=== PATIENT | male | born 1990 | race Two or more races ===

== ENCOUNTER 2017-10-02 11:33 | Emergency (ER) | payer OTHER ==
[2017-10-02 11:47] VITALS: BP 128/88
--- NOTE | 2017-10-02 12:30 | EDPHY ---
H & P Time Seen by Provider: 10/02/17 12:04 HPI/ROS: This patient complains of a head injury sustained at work at 9:30 a.m. 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 Patient reports that he was dazed for a few minutes and had diplopia for 2-3 minutes from the episode. Then he developed a right-sided headache. He described the headache as sharp in nature last night with peak intensity 7/ 10. Today his headache is 2/10 right frontal in location without clear exacerbating factors. He has not taken any medications for his headache. However he had 1 brief recurrent episode of diplopia this morning that has since resolved. He also reports that he feels more emotionally bili D than usual getting an argument with his this morning where the usually along quite well. He came in by private vehicle for further evaluation of the symptoms. ROS: Constitutional: No fevers. No significant fatigue. HEENT: He denies any nasal injuries, dental injuries or ocular injuries. Neuro: Currently no vision changes reports that the diplopia he experienced this morning was about 3 min in duration. He reports no confusion. No focal numbness tingling weakness. No neck stiffness. Pulmonary: No chest wall injury or shortness of breath Cardiovascular: No lightheadedness GI: No nausea vomiting. Musculoskeletal: He was not kicked hit or punched anywhere else except for a mild left infrapatellar injury when he slipped the same patient while trying to base him struck his knee against the edge of the bathtub also yesterday. He reports minimal pain at the left pretibial region from that injury. Integumentary: No lacerations abrasions 10 point ROS is otherwise negative. Past Medical/Surgical History: Otherwise healthy with 1 prior concussion several years ago. Smoking Status: Current some day smoker Physical Exam: Physical exam: Vital signs are normal General: Patient is in no acute distress. HEENT: Is no external evidence of trauma on exam except for mild tenderness to the right forehead without associated hematoma, abrasion or laceration. Nose atraumatic. Ears: Clear bilaterally with no hemotympanum. Oropharynx: No dental trauma or malocclusion. No intraoral lacerations. Eyes: Pupils are equal and reactive to light. Extraocular motions are intact. Optic fundi: Clear with no papilledema or hemorrhage. Neck: Trachea is midline with no stridor. The patient has no midline neck tenderness and retains a full range of motion without increase in pain. Lungs: Clear to auscultation bilaterally Cardiac: Regular rate and rhythm no murmur gallop or rub. Chest: Nontender. Abdomen: Soft nontender no organomegaly Back: Nontender Extremities: Atraumatic except for a small contusion to the left upper pretibial leg just inferior to the patella with mild tenderness but no significant swelling. The rest of that knee exam is normal with no laxity, knee effusion or other abnormal findings Neuro: GCS of 15. Cranial nerves II through XII intact. 3 out of 3 five- minute memory is intact. Cerebellar exam is normal as judged by symmetric rapid hand movements bilaterally. No pronator drift. No sensory or motor deficits are appreciated. Initial differential diagnosis: Concussion without LOC, knee contusion, doubt cerebral contusion or more significant head injury. Constitutional: Initial Vital Signs Temperature (C) 36.5 C 10/02/17 11:44 Heart Rate 75 10/02/17 11:44 Respiratory Rate 16 10/02/17 11:44 Blood Pressure 128/88 H 10/02/17 11:44 O2 Sat (%) 98 10/02/17 11:44 O2 Delivery Mode Room Air Allergies/Adverse Reactions: No Known Allergies Allergy (Unverified 10/02/17 11:47) Home Medications: Medication Instructions Recorded NK [No Known Home Meds] 10/02/17 MDM/Departure - [facility] ED Course/Re-evaluation: Patient declined any analgesics while here. I counseled him regarding concussion. I recommended that he take few days off of work and follow up with work comp on Sunday. Discussion: Patient presents with findings consistent with concussion without LOC. He also has a pretibial contusion. No other evidence of significant injury on exam. No focal neuro findings are red flag findings that would suggest skull fracture, intracranial bleed or other concerning findings. However, patient her stands the need to return emergency department should he developed any worsening of symptoms despite the treatment plan of Tylenol and rest. - Depart Disposition: Home, Routine, Self-Care Clinical Impression: Concussion Qualifiers: Encounter type: initial encounter Loss of consciousness presence/duration: without LOC Qualified Code(s): S06.0X0A - Concussion without loss of consciousness, initial encounter Contusion of left knee Qualifiers: Encounter type: initial encounter Qualified Code(s): S80.02XA - Contusion of left knee, initial encounter Condition: Good Instructions: Concussion (ED) Additional Instructions: Diagnoses: 1. Concussion without LOC 2. Knee contusion Plan: Tylenol for pain as needed No work for the next 2 days. Call the work comp clinic to arrange follow-up appointment for Sunday for recheck. Return emergency department if he develops unbearable headache, vomiting more than once, confusion or other concerns Do not engage in activities that but she risk for recurrent head injury until 7 days after resolution of her current symptoms. Referrals: NONE *PRIMARY CARE P,. [Primary Care Provider] - As per Instructions
== END 2017-10-02 12:42 | disposition home or self-care (01) ==
LOC: CED 11:33
DX: S06.0X0A Concussion without loss of consciousness, initial encounter (principal); S80.02XA Contusion of left knee, initial encounter; F17.200 Nicotine dependence, unspecified, uncomplicated; W51.XXXA Accidental striking against or bumped into by another person, initial encounter; Y92.89 Other specified places as the place of occurrence of the external cause; Y99.0 Civilian activity done for income or pay; Y93.89 Activity, other specified